=== PATIENT | male | born 1995 | race Caucasian/White ===

== ENCOUNTER 2018-11-21 19:43 | Emergency (ER) | payer OTHER ==
[~2018-11-21] VITALS: Ht 188 cm; Wt 77.1 kg
[2018-11-21 19:57] VITALS: BP 94/67
[2018-11-21] MEDS ORDERED: NS 1000ML 1,000 ML ONE (20:10)
[2018-11-21] MEDS ORDERED: NS 1000ML 1,000 ML IV STA (20:24)
--- NOTE | 2018-11-21 20:34 | ER.PDOC ---
General Chief Complaint: Dizziness Stated Complaint: N/V/D Time seen by MD: 20:33 Source: patient Exam Limitations: no limitations History of Present Illness Initial Comments Nausea/vomiting/diarrhea for 2-3 days. No abdominal pain. Severity/Quality: moderate Associated Symptoms (vomiting): mild vomiting Associated Symptoms (diarrhea): watery Allergies: Coded Allergies: No Known Allergies (Unverified , 11/21/18) Vital Signs First Vital Signs Date Time Temp Pulse Resp B/P (MAP) Pulse Ox O2 Delivery O2 Flow Rate FiO2 11/21/18 19:57 98.3 100 16 94/67 (76) 97 Room Air Last Vital Signs Date Time Temp Pulse Resp B/P (MAP) Pulse Ox O2 Delivery O2 Flow Rate FiO2 11/21/18 19:57 98.3 100 16 97 Room Air 11/21/18 19:57 94/67 (76) Past Medical History Medical History: asthma Surgical History: no surgical history Social History Smoking: non-smoker Alcohol Use: occassionally Drug Use: none Constitutional: no symptoms reported EENTM: no symptoms reported Respiratory: no symptoms reported Cardiovascular: no symptoms reported Gastrointestinal: see HPI All Other Systems: Reviewed and Negative Physical Exam General Appearance: No Apparent Distress, WD/WN Neck: Non-Tender, Full Range of Motion, Supple, Normal Inspection Respiratory: chest non-tender, lungs clear, normal breath sounds, no respiratory distress, no accessory muscle use Cardiovascular: Normal Peripheral Pulses, Regular Rate, Rhythm, No Edema, No Gallop, No JVD, No Murmur Gastrointestinal: Normal Bowel Sounds, Non Tender, Soft Back: Normal Inspection, No CVA Tenderness, No Vertebral Tenderness Extremities: Normal Range of Motion, Non-Tender, Normal Inspection, No Pedal Edema, No Calf Tenderness, Normal Capillary Refill, Pelvis Stable Neurologic/Psychiatric: 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 NML as Tested, No Motor/Sensory Deficits, A lert, Normal Mood/Affect, Oriented x 3 Skin: Normal Color, Warm/Dry Results/Orders Results/Orders Orders - ARPAN MILNER MD 0.9 % Sodium Chloride (Ns 1000ml) (11/21/18 20:10) 0.9 % Sodium Chloride (Ns 1000ml) (11/21/18 20:24) Cbc With Auto Diff (11/21/18 20:31) Comprehensive Metabolic Panel (11/21/18 20:31) Vital Signs Date Time Temp Pulse Resp B/P (MAP) Pulse Ox O2 Delivery O2 Flow Rate FiO2 11/21/18 19:57 98.3 100 16 97 Room Air 11/21/18 19:57 98.3 100 16 11/21/18 19:57 98.3 100 16 94/67 (76) 97 Room Air Administered Medications Medications (Trade) Dose Ordered Sig/Candice Route PRN Reason Start Time Stop Time Status Last Admin Dose Admin Sodium Chloride 1,000 ml @ 1,200 mls/hr Q50M STAT IV 11/21/18 20:24 11/21/18 21:13 DC 11/21/18 20:27 1,200 MLS/HR Laboratory Tests Test 11/21/18 20:41 White Blood Count 9.5 10^3/uL (4.5-11.0) Red Blood Count 4.35 10^6/uL (4.50-5.90) L Hemoglobin 13.1 g/dL (13.9-16.3) L Hematocrit 37.6 % (37.0-53.0) Mean Corpuscular Volume 86.4 fL (78-100) Mean Corpuscular Hemoglobin 30.1 pg (26-34) Mean Corpuscular Hemoglobin Concent 34.8 g/dL (33-37) Red Cell Distribution Width 13.4 % (11.5-14.5) Platelet Count 267 10^3/uL (150-400) Mean Platelet Volume 8.7 fL (7.8-11.0) Neutrophils (%) (Auto) 66.2 % (41.0-85.0) Lymphocytes (%) (Auto) 16.3 % (24.0-44.0) L Monocytes (%) (Auto) 15.0 % (5.0-12.0) H Neutrophils # (Auto) 6.3 10^3/uL (1.8-7.7) Lymphocytes # (Auto) 1.6 10^3/uL (1.0-4.8) Monocytes # (Auto) 1.4 10^3/uL (0.3-0.8) H Absolute Immature Granulocyte (auto 0.03 10^3 u/L (0-2) Immature Granulocytes % 0.30 % (0.00-0.50) Eosinophils % 1.7 % (0.0-5.0) Basophils % 0.5 % (0.0-0.2) H Basophils # 0.1 10^3/uL (0.0-0.1) Eosinophil Count 0.2 10^3/uL (0.0-0.2) Sodium Level 143 mmol/L (132-145) Potassium Level 3.1 mmol/L (3.6-5.2) L Chloride Level 107.0 mmol/L (96-109) Carbon Dioxide Level 26.2 mmol/L (20.0-32) Anion Gap 12.9 Blood Urea Nitrogen 8 mg/dL (7-18) Creatinine 0.81 mg/dL (0.59-1.40) Estimated GFR () 140.5 (>/=60) BUN/Creatinine Ratio 9.0 Glucose Level 119 mg/dL (70-110) H Calcium Level 8.3 mg/dL (8.4-10.5) L Total Bilirubin 0.4 mg/dL (0.2-1.0) Aspartate Amino Transferase (AST) 12 U/L (0-35) Alanine Aminotransferase (ALT) 8 U/L (12-78) L Alkaline Phosphatase 68 U/L (50-136) Total Protein 6.9 g/dL (6.4-8.2) Albumin 3.3 g/dL (3.4-5.0) L Globulin 3.6 Departure Time of Disposition: 21:31 Disposition: 01 HOME, SELF-CARE Impression: Primary Impression: Gastroenteritis Additional Impression: Dehydration Condition: Improved Referrals: PCP,UNKNOWN (PCP) PRIMARY CARE PROVIDER Additional Instructions: Imodium Push fluids F/U with your PCP tomorrow Duration or Time Spent with Pa: 45 mins Problem Qualifiers ARPAN MILNER MD Nov 21, 2018 20:33
[2018-11-21 20:48] LABS: BASOPHIL # 0.1 10^3/uL (0.0-0.1); BASOPHIL % 0.5 % (0.0-0.2); EOSINOPHIL # 0.2 10^3/uL (0.0-0.2); EOSINOPHIL % 1.7 % (0.0-5.0); HEMOGLOBIN 13.1 g/dL (13.9-16.3); LYMPHOCYTES # 1.6 10^3/uL (1.0-4.8); LYMPHOCYTES % 16.3 % (24.0-44.0); MEAN CELL HGB 30.1 pg (26-34); MEAN CELL HGB CONCENTRATION 34.8 g/dL (33-37); MEAN CORP VOLUME 86.4 fL (78-100); MEAN PLATELET VOLUME 8.7 fL (7.8-11.0); MONOCYTES # 1.4 10^3/uL (0.3-0.8); NEUTROPHIL # 6.3 10^3/uL (1.8-7.7); NEUTROPHILS % 66.2 % (41.0-85.0); RED CELL DISTRIBUTION WIDTH 13.4 % (11.5-14.5); WHITE BLOOD CELL 9.5 10^3/uL (4.5-11.0)
[2018-11-21 21:04] LABS: CALCIUM 8.3 mg/dL (8.4-10.5); CARBON DIOXIDE 26.2 mmol/L (20.0-32)
[2018-11-21 21:17] VITALS: BP 116/57
[2018-11-21 21:45] VITALS: BP 123/62
--- NOTE | 2018-11-21 21:50 | NUR ---
IV IV REMOVED CATHETER INTACT APPLIED [employer]BAN DRESSING NO BLEEDING NOTED.
[2018-11-21 22:12] VITALS: BP 123/62
== END 2018-11-21 22:00 | disposition home or self-care (01) ==
LOC: ER 19:43
DX: K52.9 Noninfective gastroenteritis and colitis, unspecified (principal); E86.0 Dehydration; J45.909 Unspecified asthma, uncomplicated
CPT/HCPCS: 36415; 80053; 85025; 96360; 99284; J7030